=== PATIENT | female | born 1980 | race Caucasian/White ===

== ENCOUNTER 2018-12-05 09:56 | Outpatient (REF) | payer BC, SELFPAY ==
[2018-12-05 21:19] LABS: Abs Immature Grans 0.02 k/cumm (0.0-0.09); Absolute Basophil Count 0.02 k/cumm (0.0-0.2); Absolute Eosinophil Count 0.11 k/cumm (0.0-0.7); Absolute Lymphocyte Count 1.84 k/cumm (1.2-3.4); Absolute Monocyte Count 0.48 k/cumm (0.11-0.7); Absolute Neutrophil Count 4.28 k/cumm (1.2-6.7); Basophils % 0.3; Eosinophils % 1.6; HCT 44.8 % (36.0-46.0); HGB 14.7 g/dL (12.0-15.5); Immature Grans % 0.3; Lymphocytes % 27.3; Mean Corp. HGB Concentration 32.8 g/dL (32.0-36.0); Mean Corpuscular Hemoglobin 28.9 pg (27.0-33.0); Mean Corpuscular Volume 88.2 fL (80-95); Mean Platelet Volume 10.2 fL (8.0-11.0); Monocytes % 7.1; Neutrophils % 63.4; Platelet Count 335 x1000/uL (130-400); RBC 5.08 m/cumm (4.00-5.20); RBC Distribution Width 13.5 % (11.7-14.6); White Blood Cell Count 6.75 k/cumm (4.4-10.8)
[2018-12-05 21:48] LABS: Calculated LDL 147 mg/dL; Cholesterol 229 mg/dL (50-200); Glucose 86 mg/dL (70-100); HDL Cholesterol 75 mg/dL (40-60); TSH 2.32 uIU/mL (0.36-3.74); Triglyceride 36 mg/dL (30-150)
== END 2018-12-05 10:16 ==
LOC: NCHCN 09:56
PROVIDERS: PCP Internal Medicine; Visit Provider Internal Medicine
DX: R53.83 Other fatigue (principal); Z13.1 Encounter for screening for diabetes mellitus; Z83.2 Family history of diseases of the blood and blood-forming organs and certain disorders involving the immune mechanism; Z13.220 Encounter for screening for lipoid disorders
CPT/HCPCS: 80061; 82947; 84443; 85025

== ENCOUNTER 2019-08-19 07:52 | Outpatient (CLI) | payer BC, SELFPAY ==
[2019-08-22 23:30] LABS: SARS-CoV-2 RNA Undetected (Undetected)
== END 2019-08-19 08:12 ==
PROVIDERS: PCP Internal Medicine; Visit Provider Nurse Practitioner Family
DX: Z11.59 Encounter for screening for other viral diseases (principal)
CPT/HCPCS: U0003